=== PATIENT | female | born 1965 ===

== ENCOUNTER → 2021-11-16 08:03 | Outpatient (BNVA) | payer MEDICARE, MEDICAID, SELFPAY | PROVIDERS: PCP Internal Medicine; Visit Provider Nurse Practitioner Family | DX: G43.709 Chronic migraine without aura, not intractable, without status migrainosus (principal); M54.2 Cervicalgia; R06.83 Snoring; G47.19 Other hypersomnia; G47.9 Sleep disorder, unspecified | CPT/HCPCS: 99202 ==

== ENCOUNTER → 2021-12-12 10:52 | Outpatient (REF) | payer MEDICARE, MEDICAID, SELFPAY | LOC: HO.SL 10:52 | PROVIDERS: PCP Internal Medicine; Visit Provider Nurse Practitioner Family | DX: G47.33 Obstructive sleep apnea (adult) (pediatric) (principal); G47.19 Other hypersomnia; R06.83 Snoring | CPT/HCPCS: 95806 ==

== ENCOUNTER 2024-03-29 08:17 | Outpatient (AMB) | payer OTHER, SELFPAY ==
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
[2024-03-29 08:22] VITALS: BP 130/74; PULSE 68; O2SAT 98; BMI 34.2
== END 2024-03-29 09:21 | disposition home or self-care (01) ==
PROVIDERS: PCP Internal Medicine; Visit Provider Nurse Practitioner Family
DX: G43.709 Chronic migraine without aura, not intractable, without status migrainosus (principal); G47.33 Obstructive sleep apnea (adult) (pediatric); J30.2 Other seasonal allergic rhinitis
CPT/HCPCS: 99214

== ENCOUNTER → 2024-03-29 08:17 | Outpatient (BNVA) | payer OTHER, SELFPAY | PROVIDERS: PCP Internal Medicine; Visit Provider Nurse Practitioner Family | DX: G43.709 Chronic migraine without aura, not intractable, without status migrainosus (principal); G47.33 Obstructive sleep apnea (adult) (pediatric); J30.2 Other seasonal allergic rhinitis | CPT/HCPCS: 99212 ==

== ENCOUNTER → 2024-04-21 10:49 | Outpatient (BNVA) | payer OTHER, SELFPAY | PROVIDERS: PCP Internal Medicine; Visit Provider Nurse Practitioner Family ==

== ENCOUNTER 2024-10-08 09:53 | Outpatient (AMB) | payer OTHER, SELFPAY ==
[2024-10-08 10:11] VITALS: BP 110/70; PULSE 62; O2SAT 99; BMI 34.0
--- NOTE | 2024-10-08 10:11 | A.OFFVIS_ITS ---
Vital Signs 10/08/24 10:11 Height 5 ft 1 in Weight 180 lb BMI 34.0 BP 110/70 Blood Pressure Location Rt brachial Position Sitting Pulse 62 Pulse Source Pulse Oximeter Pulse Oximetry (%) 99 Oxygen Delivery Method Room Air Intake Visit Reasons: 6mo F/U Ingot Caster Required: No Accompanied by: Self / Same As Patient Allergies No Known Allergies Allergy (Verified 03/29/24 08:23) Medication List - Last Reconciled 10/08/24 by DAYRON Honeycutt atorvastatin 40 mg PO DAILY azelastine 2 sprays intranasal BID 30 days buspirone 15 mg PO BID citalopram 40 mg PO DAILY clonidine HCl 0.1 mg PO BID erenumab-aooe (Aimovig Autoinjector) 140 mg subcut ONCE 30 days ibuprofen 800 mg PO Q8H PRN levothyroxine 100 mcg PO DAILY loratadine 10 mg PO DAILY magnesium oxide 400 mg PO DAILY 30 days metformin ER 500 mg PO BID omeprazole 20 mg PO DAILY riboflavin (vitamin B2) 400 mg PO DAILY 30 days rizatriptan 5 - 10 mg (0.5 - 1 x 10 mg) PO Q2H PRN 30 days topiramate 50 mg PO BID 30 days trazodone 50 mg PO BEDTIME PRN HPI Comments Details: History of Present Illness The patient is a 59-year-old female presenting with chronic migraine management. Previously, she faced severe weekly migraines, managed with riboflavin, magnesium, and increased topiramate to 50 mg BID. Introduced azelastine nasal spray to counter nasal congestion in sleep apnea, hoping to aid migraine control. Rizatriptan for acute migraines proved unsuitable, causing anxiety and enhanced headache episodes, hence discontinued. Erenumab injections monthly achieved reduced migraine frequency; headaches lessened from daily with severe attacks 2 days per week to biweekly interval, with just occasional interval mild headaches in between, mitigating severity. Baseline headache characteristics: Aura: Blurry vision and confusion before onset of headache. Headache characteristics: Mild-severe throbbing bilateral parietal (but may extend over whole head) tension/pressure headache a/w photophobia, phonophobia, osmophobia, nausea, vomiting, dizziness, brain fog, tiredness, generalized weakness, runny nose at times, activity intolerance. Increased sleep quality due to effective sinus treatment with flonase and azelastine.. She was recently treated for an uncomplicated sinus infection with course of antibiotics with good effect. Also notes recent right dental repair, and since has had tooth pain- plans to f/u with her dentist as she did not have pain prior to the dental procedure. Medication History - Riboflavin 400 mg daily: Chronic migraine management. - Magnesium 400 mg daily at bedtime: Chronic migraine management. - Topiramate 50 mg BID: Chronic migraine management, increased from 25 mg twice a day. - Rizatriptan 10 mg: Acute migraine treatment, discontinued due to anxiety and headache exacerbation. - Erenumab 140 mg monthly injection: Chronic migraine management, effective with no significant side effects. - Azelastine 137 mg nasal spray: Managing nasal congestion and sleep apnea symptoms. - Fluticasone nasal spray: Complementary for sinus treatment, as advised. [facility] Medical History (Updated 10/08/24 @ 13:40 by DAYRON Honeycutt) Asthma Depression HLD (hyperlipidemia) Surgical History History of back surgery Family History Father HTN (hypertension) Brother Cancer Son Asthma Daughter Asthma Social History Household Members: None Alcohol intake: never Patient Tobacco Use Status: Never used Tobacco Physical Exam Vital Signs: Last Vital Signs Pulse 62 10/08/24 10:11 BP 110/70 10/08/24 10:11 Pulse Ox 99 10/08/24 10:11 Oxygen Delivery Method Room Air 10/08/24 10:11 BMI result Body Mass Index 34.0 Const General: cooperative and no acute distress Orientation/consciousness: patient oriented x3 Resp Effort & Inspection: normal respiratory effort and able to speak in complete sentences Neuro General: patient oriented x3 Cranial nerves: Yes CN's II-XII intact bilaterally Cognition (Neuro): normal cognition Psych Appearance: grossly normal Mental Status: mental status grossly normal Speech and movement: Normal speech and movement present Affect: normal affect Attitude: cooperative Assessment & Plan Assessment & Plan (1) Chronic migraine without aura: Code(s): G43.709 - Chronic migraine without aura, not intractable, without status migrainosus Category: Medical (2) Mild obstructive sleep apnea: Comment: Mild MICHAEL-patient did not tolerate therapy. Code(s): G47.33 - Obstructive sleep apnea (adult) (pediatric) Category: Medical (3) Seasonal allergies: Code(s): J30.2 - Other seasonal allergic rhinitis Category: Medical Plan Discussion Notes * During our discussion, I reviewed the ongoing management of the patient's chronic migraine without aura. The patient's treatment has shown effectiveness in reducing both the frequency and severity of migraine attacks. Monthly erenumab injections have significantly contributed to this improvement. Additionally, we addressed the adverse effects of rizatriptan, which has been discontinued. For acute migraine relief, we discussed the potential utilization of ubrogepant, considering past intolerance to triptans. I provided guidance on seeking a prior authorization for both erenumab and ubrogepant to ensure continued coverage and access to these therapies. * For the management of sleep apnea and nasal congestion with azelastine and fluticasone nasal sprays has supported the patient's overall condition by enhancing sleep quality, which is vital in migraine management. Future monitoring and follow-up will focus on maintaining current improvements and addressing any emerging issues. Patient was informed and verbally consented to the use of an ambient scribe for clinic note documentation during this visit. Plan: For overall migraine tx: Track migraines. Information shared on migraine education resources. Monitor mild MICHAEL s/s- pt did not tolerate APAP tx. For migraine prevention: Continue Riboflavin 400 mg daily in a.m. Continue Magnesium 400 mg daily at bedtime Continue topiramate 50 mg b.i.d. Continue Azelastin 137mg nasal spray qhs- as decreasing nasal congestion may reduce migraine and MICHAEL s/s burden. Continue Aimovig 140mg sc q month, as patient has had greater than 75% reduction in monthly migraine days since starting Aimovig. Previous migraine treatment failures: Amitriptyline- not tolerated. Migraine tx contraindications- Beta-blockers d/t symptomatic asthma. For acute migraine treatment: Discontinue Rizatriptan 10mg tab- not tolerated Trial Ubrogepant (Ubrelvy) 100mg tab, 1/2 - 1 tab (50-100mg) at onset of headache, may repeat in 2 hours. Max of 2 tabs (200mg) per 24 hours. May adjunct with OTC Tylenol 650mg q 4 hours, Ibuprofen 600mg q 6 hours, or Naproxen 440mg q 12 hrs prn. Potential adverse effects, include but are not limited to fatigue, nausea, dry mouth, constipation Previous migraine treatment failures: Sumatriptan: Not tolerated. Naratriptan- ineffective/not tolerated. Rizatriptan- not tolerated, cause anxiety and increased headache. Pt to follow-up in 6 months or sooner prn. Medications: New ubrogepant (Ubrelvy) take at onset of migraine, may repeat in 2hrs (may take w/ Tylenol) 50 - 100 mg (0.5 - 1 x 100 mg) PO ONCE PRN 16 tabs 3RF migraine headache 30 days Changed From magnesium oxide 400 mg PO DAILY 30 days 30 tabs 6RF To magnesium oxide 400 mg PO DAILY 90 tabs 3RF 90 days From riboflavin (vitamin B2) 400 mg PO DAILY 30 days 30 tabs 6RF To riboflavin (vitamin B2) 400 mg PO DAILY 90 tabs 3RF 90 days From topiramate 50 mg PO BID 30 days 60 tabs 6RF To topiramate 50 mg PO BID 180 tabs 3RF 90 days From azelastine administer into each nostril 2 sprays intranasal BID 30 days 30 mL 6RF To azelastine administer into each nostril 2 sprays intranasal BID 90 mL 3RF 90 days Refilled erenumab-aooe (Aimovig Autoinjector) 140 mg subcut ONCE 1 mL 11RF 30 days G43.709 - Chronic migraine without aura, not intractable, without status migrainosus Discontinued rizatriptan max 2 tabs per day or 4 tabs per week Discontinued Reason: Doctor's Order 5 - 10 mg (0.5 - 1 x 10 mg) PO Q2H 30 days PRN 12 tabs 3RF migraine headache Coding Level of Care Code Est Pt Level 4 (29828) Diagnoses Chronic migraine without aura G43.709 Mild obstructive sleep apnea G47.33 Seasonal allergies J30.2
== END 2024-10-08 10:42 | disposition home or self-care (01) ==
LOC: HO.HSMS 09:53
PROVIDERS: PCP Internal Medicine; Visit Provider Nurse Practitioner Family
DX: G43.709 Chronic migraine without aura, not intractable, without status migrainosus (principal); G47.33 Obstructive sleep apnea (adult) (pediatric); J30.2 Other seasonal allergic rhinitis
CPT/HCPCS: 99214

== ENCOUNTER → 2024-10-08 09:53 | Outpatient (BNVA) | payer OTHER, SELFPAY | PROVIDERS: PCP Internal Medicine; Visit Provider Nurse Practitioner Family | DX: G43.709 Chronic migraine without aura, not intractable, without status migrainosus (principal); G47.33 Obstructive sleep apnea (adult) (pediatric); J30.2 Other seasonal allergic rhinitis | CPT/HCPCS: 99212 ==